=== PATIENT | female | born 1995 | race Caucasian/White ===

== ENCOUNTER 2018-02-11 07:58 | Emergency (ER) | payer OTHER ==
[~2018-02-11] VITALS: Ht 162.6 cm; Wt 68.0 kg
[2018-02-11 08:00] VITALS: BP_SYST 143
--- NOTE | 2018-02-11 08:06 | NUR ---
Patient to ER bed 7 to gown for evaluation. Side rails up. Report given to Lizabeth NASSAR.
--- NOTE | 2018-02-11 08:10 | NUR ---
PT STATES THAT WHILE GETTING READY THIS AM FOR SCHOOL, SHE STATES SHE HAD EPISODE OF EPIGASTRIC PAIN. PT STATES INCREASED ANXIETY RECENTLY. PT STATES SOB, NO DISTRESS, SPEAKING FULL SENTENCES. PRISCILA AT BEDSIDE FOR SUPPORT
--- NOTE | 2018-02-11 08:18 | NUR ---
DR DAVIS AT BEDSIDE FOR EVALUATION
[2018-02-11] MEDS ORDERED: LORazepam 2 MG/ML VIAL (FOR ER USE) IVP ONE ×2 (08:30→09:00)
--- NOTE | 2018-02-11 08:37 | NUR ---
PT IS VERY EMOTIONAL AND TEARY, FIANCEE AT BEDSIDE FOR EVALUATION, MEDICATED ORDERED. WILL CLOSELY MONITOR
--- NOTE | 2018-02-11 09:22 | NUR ---
MEDICATED ORDERED. MOTHER AND FIANCEE AT BEDSIDE.
[2018-02-11 09:51] VITALS: BP_SYST 113
== END 2018-02-11 09:51 | disposition home or self-care (01) ==
LOC: SED 07:58
DX: F41.9 Anxiety disorder, unspecified (principal); K21.9 Gastro-esophageal reflux disease without esophagitis; R07.9 Chest pain, unspecified; R06.02 Shortness of breath
CPT/HCPCS: 81025; 93005; 96374; 96376; 99284; J2060

== ENCOUNTER 2018-02-25 16:43 | Emergency (ER) | payer SELFPAY ==
[~2018-02-25] VITALS: Ht 162.6 cm; Wt 68.0 kg
[2018-02-25 16:55] VITALS: BP_SYST 131
--- NOTE | 2018-02-25 18:06 | NUR ---
Patient states that she called her sister who is a doctor and was told it is just a migraine. States that she is going to leave at this time. I advised her that beds were becoming open she would be placed in a bed now, she declined stating that she no longer believed she needed to be seen. Patient LWBS.
== END 2018-02-25 18:06 | disposition left against medical advice (07) ==
LOC: SED 16:43
DX: R51 Headache (principal); Z53.21 Procedure and treatment not carried out due to patient leaving prior to being seen by health care provider

== ENCOUNTER 2019-03-27 12:39 | Emergency (ER) | payer MEDICAID ==
[~2019-03-27] VITALS: Ht 162.6 cm; Wt 72.6 kg
[2019-03-27 12:40] VITALS: BP_SYST 122
[2019-03-27 14:03] LABS: BASOPHILS % (AUTO) 0.6 % (0.0-2.0); EOSINOPHILS # (AUTO) 0.1 K/uL (0.0-0.4); EOSINOPHILS % (AUTO) 1.6 % (0.0-4.0); HEMATOCRIT 40.7 % (36-48); HEMOGLOBIN 13.5 g/dL (12.0-16.0); LYMPHOCYTES # (AUTO) 1.1 K/uL (1.0-5.5); LYMPHOCYTES % (AUTO) 14.2 % (20.5-51.5); MEAN CORPUSCULAR HEMOGLOBIN 29 pg (27-31); MEAN CORPUSCULAR HGB CONC 33 % (32-36); MEAN CORPUSCULAR VOLUME 87 fL (79.0-98.0); MONOCYTES # (AUTO) 0.6 K/uL (0.0-1.0); MONOCYTES % (AUTO) 7.7 % (1.7-9.3); NEUTROPHILS % (AUTO) 75.9 % (40.0-70.0); PLATELET COUNT (AUTO) 225 K/uL (130-430); RED BLOOD CELL COUNT(AUTO) 4.67 MIL/uL (4.2-6.2); RED CELL DISTRIBUTION WIDTH 13.7 % (9.0-15.0); WHITE BLOOD COUNT (AUTO) 7.9 K/uL (4.8-10.8)
[2019-03-27 14:48] VITALS: BP_SYST 136
== END 2019-03-27 14:45 | disposition home or self-care (01) ==
LOC: SED 12:39
DX: K62.5 Hemorrhage of anus and rectum (principal); K21.9 Gastro-esophageal reflux disease without esophagitis; J45.909 Unspecified asthma, uncomplicated
CPT/HCPCS: 36415; 74018; 81025; 85025; 99284

== ENCOUNTER 2019-06-13 13:10 | Emergency (ER) | payer SELFPAY ==
[~2019-06-13] VITALS: Ht 162.6 cm; Wt 71.7 kg
[2019-06-13 13:30] VITALS: BP_SYST 156
--- NOTE | 2019-06-13 14:30 | NUR ---
Patient to ER bed 03 to gown for evaluation. Side rails up.
--- NOTE | 2019-06-13 14:32 | NUR ---
Patient arrived in the ED c/o sharp pain and tingling sensation on her head and back, chills, nausea; Ongoing for a couple of weeks, Pain severity 9-10/10 - Taking Ibuprofen; no relief. Denied any fevers, vomiting or diarrhea. Patient is alert and oriented x4, respirations even and unlabored, speaking in full sentences, ambulating with a steady gait. Patient denied any respiratory distress at this time. Informed of the wait time. Instructed to notify ED staff for any changes in condition or worsening of symptoms. Patient verbalized understanding.
--- NOTE | 2019-06-13 14:36 | NUR ---
FRANK Frederick at bedside examining patient.
[2019-06-13] MEDS ORDERED: ONDANSETRON 4 MG ODT TAB PO ONE (14:45)
[2019-06-13] MEDS ORDERED: IBUPROFEN 600 MG TABLET PO ONE (14:45)
--- NOTE | 2019-06-13 14:50 | NUR ---
Patient taken to Radiology via wheelchair, in stable condition.
--- NOTE | 2019-06-13 14:55 | NUR ---
Patient is back from Radiology, in stable condition.
--- NOTE | 2019-06-13 15:05 | NUR ---
Administered Zofran and Ibuprofen 600mg PO as ordered by Dr. Frederick. Patient tolerated the medications well.
[2019-06-13 15:08] LABS: BILIRUBIN,URINE NEGATIVE (NEGATIVE); BLOOD, URINE 3+ (NEGATIVE); COLOR,URINE YELLOW (YELLOW); GLUCOSE,URINE NEGATIVE (NEGATIVE); KETONES,URINE NEGATIVE (NEGATIVE); LEUKOCYTE ESTERASE ,URINE TRACE (NEGATIVE); NITRITE, URINE POSITIVE (NEGATIVE); PROTEIN URINE NEGATIVE (NEGATIVE); UROBILINOGEN,URINE 0.2 (0.2-1.0)
[2019-06-13 15:17] LABS: CLARITY/URINE HAZY (CLEAR)
[2019-06-13 15:18] LABS: BACTERIA,URINE MODERATE /HPF (None Seen); MUCUS,URINE None Seen /LPF (None Seen); RBC,URINE 0-3 /HPF (0-3)
[2019-06-13] MEDS ORDERED: cefTRIAXone 1 GM in LIDOCAINE 1%, 20 ML MDV 2.1 ML IM ONE (15:30)
--- NOTE | 2019-06-13 15:37 | NUR ---
Administered Rocephin 1gram IM as ordered by Dr. Frederick. Patient tolerated the medication well.
--- NOTE | 2019-06-13 15:55 | NUR ---
Patient given written and verbal discharge instructions and verbalizes understanding. ER MD discussed with patient the results and treatment provided. Patient in stable condition. ID arm band removed. Rx of Macrobid given. Patient educated on pain management and to follow up with PMD. Pain Scale 1/10. Opportunity for questions provided and answered. Medication side effect fact sheet provided.
[2019-06-13 15:57] VITALS: BP_SYST 156
== END 2019-06-13 15:55 | disposition home or self-care (01) ==
LOC: SED 13:10
DX: N39.0 Urinary tract infection, site not specified (principal); R51 Headache; K59.00 Constipation, unspecified; J45.909 Unspecified asthma, uncomplicated; K21.9 Gastro-esophageal reflux disease without esophagitis
CPT/HCPCS: 72100; 81000; 87086; 96372; 99284; J0696; J2001; Q0162

== ENCOUNTER 2019-07-11 12:37 | Emergency (ER) | payer SELFPAY ==
[~2019-07-11] VITALS: Ht 162.6 cm; Wt 68.0 kg
[2019-07-11 12:37] VITALS: BP_SYST 119
[2019-07-11 13:16] LABS: BILIRUBIN,URINE NEGATIVE (NEGATIVE); BLOOD, URINE 1+ (NEGATIVE); CLARITY/URINE CLEAR (CLEAR); COLOR,URINE YELLOW (YELLOW); GLUCOSE,URINE NEGATIVE (NEGATIVE); KETONES,URINE NEGATIVE (NEGATIVE); LEUKOCYTE ESTERASE ,URINE NEGATIVE (NEGATIVE); NITRITE, URINE NEGATIVE (NEGATIVE); PROTEIN URINE NEGATIVE (NEGATIVE); UROBILINOGEN,URINE 0.2 (0.2-1.0)
[2019-07-11 13:20] LABS: BASOPHILS % (AUTO) 0.6 % (0.0-2.0); EOSINOPHILS # (AUTO) 0.1 K/uL (0.0-0.4); EOSINOPHILS % (AUTO) 1.1 % (0.0-4.0); HEMATOCRIT 38.5 % (36-48); HEMOGLOBIN 12.8 g/dL (12.0-16.0); LYMPHOCYTES # (AUTO) 1.7 K/uL (1.0-5.5); LYMPHOCYTES % (AUTO) 22.9 % (20.5-51.5); MEAN CORPUSCULAR HEMOGLOBIN 29 pg (27-31); MEAN CORPUSCULAR HGB CONC 33 % (32-36); MEAN CORPUSCULAR VOLUME 87 fL (79.0-98.0); MONOCYTES # (AUTO) 0.4 K/uL (0.0-1.0); MONOCYTES % (AUTO) 5.6 % (1.7-9.3); NEUTROPHILS # (AUTO) 5.3 K/uL (1.8-7.7); NEUTROPHILS % (AUTO) 69.8 % (40.0-70.0); PLATELET COUNT (AUTO) 241 K/uL (130-430); RED BLOOD CELL COUNT(AUTO) 4.41 MIL/uL (4.2-6.2); RED CELL DISTRIBUTION WIDTH 14.2 % (9.0-15.0); WHITE BLOOD COUNT (AUTO) 7.6 K/uL (4.8-10.8)
[2019-07-11 13:30] LABS: CALCIUM 8.9 mg/dL (8.4-11.0); CREATININE 0.66 mg/dL (0.55-1.30); POTASSIUM 3.7 mmol/L (3.5-5.1)
[2019-07-11 13:35] LABS: BACTERIA,URINE FEW /HPF (None Seen); RBC,URINE 0-3 /HPF (0-3); WBC,URINE 0-3 /HPF (0-3)
[2019-07-11 13:36] LABS: ALBUMIN 4.3 g/dL (3.4-4.8); TOTAL BILIRUBIN 0.4 mg/dL (0.0-1.0)
[2019-07-11] MEDS ORDERED: KETOROLAC TROMETHAMINE 60 MG/2 ML VIAL IM ONE (15:30)
[2019-07-11] MEDS ORDERED: ACETAMINOPHEN 325 MG TABLET PO ONE (15:45)
[2019-07-11] MEDS ORDERED: IBUPROFEN 600 MG TABLET PO ONE (15:45)
[2019-07-11 17:23] VITALS: BP_SYST 124
== END 2019-07-11 17:23 | disposition home or self-care (01) ==
LOC: SED 12:37
DX: G43.909 Migraine, unspecified, not intractable, without status migrainosus (principal)
CPT/HCPCS: 36415; 70450; 71045; 80053; 81000; 84484; 85025; 93005; 99284; J1885

== ENCOUNTER 2019-09-06 09:21 | Emergency (ER) | payer SELFPAY ==
[~2019-09-06] VITALS: Ht 162.6 cm; Wt 68.9 kg
[2019-09-06 09:21] VITALS: BP_SYST 127
--- NOTE | 2019-09-06 09:21 | NUR ---
BROUGHT BACK TO BED #7 AND TRIAGED, REPORT GIVEN TO RBIAN
--- NOTE | 2019-09-06 09:25 | NUR ---
Patient arrived via POV, AAOX4, and ambulatory with steady gait. Patient c/c of lower back pain, pelvic pain. Patient states some pain with urination, concerned regarding kidney stones. Patient calm and cooperative. Will continue to follow up and monitor.
--- NOTE | 2019-09-06 09:26 | NUR ---
Farzaneh Cruz at bedside examining patient.
[2019-09-06] MEDS ORDERED: cefTRIAXone 250 MG VIAL IM ONE (10:00)
[2019-09-06 10:04] LABS: BILIRUBIN,URINE NEGATIVE (NEGATIVE); BLOOD, URINE 3+ (NEGATIVE); CLARITY/URINE CLEAR (CLEAR); COLOR,URINE YELLOW (YELLOW); GLUCOSE,URINE NEGATIVE (NEGATIVE); KETONES,URINE NEGATIVE (NEGATIVE); LEUKOCYTE ESTERASE ,URINE 1+ (NEGATIVE); NITRITE, URINE NEGATIVE (NEGATIVE); PROTEIN URINE NEGATIVE (NEGATIVE); UROBILINOGEN,URINE 0.2 (0.2-1.0)
[2019-09-06 10:10] LABS: RBC,URINE 50-80 /HPF (0-3)
[2019-09-06 10:11] LABS: BACTERIA,URINE MANY /HPF (None Seen)
--- NOTE | 2019-09-06 10:26 | NUR ---
Patient given written and verbal discharge instructions and verbalizes understanding. ER MD discussed with patient the results and treatment provided. Patient in stable condition. ID arm band removed. Rx of Doxycycline, Pyridium, and Naprosyn given. Patient educated on pain management and to follow up with PMD. Pain Scale 3/10 back and pelvic pain. Opportunity for questions provided and answered. Medication side effect fact sheet provided.
[2019-09-06 10:28] VITALS: BP_SYST 125
[2019-09-06] MEDS ORDERED: LIDOCAINE 1%, 20 ML MDV 20 ML ONE (10:33)
== END 2019-09-06 10:28 | disposition home or self-care (01) ==
LOC: SED 09:21
DX: N39.0 Urinary tract infection, site not specified (principal); M54.5 Low back pain; J45.909 Unspecified asthma, uncomplicated; F41.9 Anxiety disorder, unspecified; K21.9 Gastro-esophageal reflux disease without esophagitis
CPT/HCPCS: 81000; 81025; 87086; 87186; 96372; 99283; J0696; J2001